=== PATIENT | female | born 1980 | race Two or more races ===

== ENCOUNTER → 2016-07-17 | Outpatient (CLI) | payer OTHER ==
--- NOTE | 2016-07-17 10:21 | US ---
Ultrasound Left Breast History: Palpable abnormality in left breast lower inner quadrant. History of prior benign biopsies. No family history of breast cancer.. Technique: Ultrasound imaging of the lower inner quadrant of the left breast from the 6 to the 9 o'cl ock position was performed by the pharmaceutical sales and me. Findings: No ultrasound evidence of dominant solid or cystic lesion in the left breast lower inner qu adrant. Benign-appearing breast parenchyma with adjacent chest wall muscles and ribs. No suspicious s olid or cystic lesions in the lower inner quadrant. Impression: 1. BI-RADS 1: Negative ultrasound of the left breast. 2. No ultrasound evidence of dominant solid or cystic lesion in the left breast lower inner quadrant. 3. Recommend continued clinical monitoring and treatment based on clinical suspicion. 4. Recommend annual mammograms beginning At age 40. 5. If palpable abnormality persists or increases in size in the next few months then consider additio nal imaging with mammography, if clinically indicated. Findings and recommendations have been discussed with the patient who agrees with the plan. Cosigned: Dr. Topher LANIER
== END ==
LOC: BRMIMAGING 09:19
PROVIDERS: ATTEND Internal Medicine
DX: N63 Unspecified lump in breast (principal)
CPT/HCPCS: 76641-PO

== ENCOUNTER → 2018-10-09 | Outpatient (CLI) | payer OTHER | LOC: FIMAGING 15:06 | PROVIDERS: ATTEND Internal Medicine | DX: N92.6 Irregular menstruation, unspecified (principal); D25.9 Leiomyoma of uterus, unspecified ==